=== PATIENT | male | born 2005 | race Caucasian/White ===

== ENCOUNTER 2023-02-04 20:26 | Emergency (ER) | payer OTHER, SELFPAY ==
[2023-02-04 20:36] VITALS: BP 134/65; PULSE 75; RESP 18; O2SAT 95; BMI 25.7
[2023-02-04] MEDS: TET,DIPH,PERTUSS(ACELL),VAC/PF 0.5 ML SYRINGE IM (20:54)
[2023-02-04] MEDS: LIDOCAINE 1% (PF) 5 ML INJ (20:54)
--- NOTE | 2023-02-04 20:55 | ED.WOUNDLAC ---
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 Brought in by his grandfather for further evaluation. He has no other specific complaints he is left-handed, tetanus status is not known and this is an L and I injury Related Data Allergies Allergy/AdvReac Type Severity Reaction Status Date / Time No Known Drug Allergies Allergy Verified 02/04/23 20:40 Review of Systems Review of Systems Narrative: Pertinent positive and negative findings as per HPI Exam Initial Vital Signs Initial Vital Signs: Vital Signs Pulse Rate 75 02/04/23 20:36 Respiratory Rate 18 02/04/23 20:36 Blood Pressure 134/65 02/04/23 20:36 Pulse Oximetry 95 02/04/23 20:36 Oxygen Delivery Method Room Air 02/04/23 20:36 General: Alert appropriate in no acute distress Respiratory: Able to speak in full sentences, no obvious respiratory distress Skin: No obvious rashes, warm and dry Neurologic: Grossly intact no obvious asymmetries or abnormalities Psych: appropriate insight and affect, cooperative Extremity: Left thumb has a 1 cm laceration into the pad of the thumb that does not involve the nail or nail bed but is large enough flap that suture to repair this will certainly expedite healing overall Procedures Laceration Repair L thumb: Time of procedure: 21:08 Site: hand Side (If applicable): left Size (cm): 1 Description: linear, flap and clean Depth: simple, single layer Local Anesthetic: other anesthetic (patient declines any anesthetic) Pre-repair: wound explored and deep structures intact Skin layer closed with: vicryl Skin layer suture size: 4-0 Number of sutures: 1 Technique: simple, interrupted Course Orders Ordered: Discontinued Medications Diphtheria/Tetanus/Acell Pertussis (Tet,Diph,Pertuss(Acell),Vac/Pf 0.5 Ml Syringe) 0.5 ml IM .ONCE ONE Stop: 02/04/23 20:44 Lidocaine HCl (Lidocaine 1% (Pf) 2ml) 2 ml INJ NOW ONE Stop: 02/04/23 20:44 Lidocaine HCl (Lidocaine 1% (Pf) 5 Ml) 5 ml INJ NOW ONE Stop: 02/04/23 20:52 Vital Signs Vital signs: Vital Signs - 8 hr 02/04/23 20:36 Pulse Rate 75 Respiratory Rate 18 Blood Pressure 134/65 Pulse Oximetry 95 Oxygen Delivery Method Room Air MDM - Wound/Laceration MDM Narrative Medical decision making narrative: CC: Laceration tip of the left thumb, acute self-limited Data collected from: patient, Differential considered: Deep wound, nail involvement, bone involvement, vascular involvement Exam documented above, pertinent findings include: 1 cm laceration to the pad of the thumb. Neurovascularly intact bleeding controlled. Nailbed not involved Treatments: Single interrupted suture is placed in the wound is dressed with a Band-Aid Discussion: Patient tolerated procedure well. Recommended sutures out on or about February 11. He does work as a operating room specialist, L and I forms are filled out ([id number]) I did recommend using a rubber glove while he is at work to keep the wound clean and dry. Questions are answered and he is safe for discharge home Discharge Plan Departure Patient Disposition: Home Clinical Impression: Laceration Instructions: DI for Laceration Repair Activity Restrictions/Additional Instructions: Thank you for coming in today Used a single stitch to repair your cut. Keep the area clean and dry and covered with a Band-Aid. If your working, I would recommend a rubber gloves so that it is not soaking in water. The stitches can come out on or about February 11. Using 400 mg of ibuprofen (2 [id number] pills) and 1 Tylenol every 6 hours can be very helpful in controlling pain. If you find that you are getting worse or develop any new symptoms, please feel free to return to the emergency department for further evaluation. Stand Alone Forms: Patient Portal/API
== END 2023-02-04 21:26 | disposition home or self-care (01) ==
PROVIDERS: Emergency Provider Emergency Medicine
DX: S61.012A Laceration without foreign body of left thumb without damage to nail, initial encounter (principal); W26.0XXA Contact with knife, initial encounter; Z23 Encounter for immunization; Y99.0 Civilian activity done for income or pay
CPT/HCPCS: 12001; 90471; 99283; 99284; 90715

== ENCOUNTER 2024-04-06 20:57 | Emergency (ER) | payer OTHER, SELFPAY ==
[2024-04-06 21:07] VITALS: BP 118/60; PULSE 93; RESP 16; TEMP 36.4; O2SAT 98; BMI 25.0
--- NOTE | 2024-04-07 00:07 | ED.WOUNDLAC ---
HPI - Wound/Laceration General Chief Complaint: Wound/Laceration Stated Complaint: finger laceration Time Seen by Provider: 04/07/24 00:03 Source: patient Mode of arrival: Ambulatory History of Present Illness HPI narrative: 18-year-old male was working this evening 7:30 p.m. at [employer], cut his left middle fingertip on a knife, unclear if it was exposed to meet or other contaminant, he washed it out, it would not seem to stop bleeding, therefore was referred here to the emergency department. Stopped bleeding during triage with dressing. Last tetanus shot 2 years ago. NKDA. Related Data Allergies Allergy/AdvReac Type Severity Reaction Status Date / Time No Known Drug Allergies Allergy Verified 04/06/24 21:07 Review of Systems Review of Systems Narrative: see HPI Patient History Social History Smoking Status: Never smoker Smoking Status: Never smoker Substance Use Type: does not use Exam Narrative Exam Narrative: GENERAL: Well-developed patient, in mild distress. HEAD: Atraumatic. Normocephalic. EYES: Pupils equal round and reactive. Extraocular motions intact. No scleral icterus. No injection or drainage. ENT: Nose without bleeding, purulent drainage. Throat without erythema, tonsillar hypertrophy or exudate. Airway patent. NECK: Trachea midline. Non tender CARDIOVASCULAR: Regular rate and rhythm without murmurs, gallops, or rubs. RESPIRATORY: Clear to auscultation. Breath sounds equal bilaterally. No wheezes, rales, or rhonchi. GASTROINTESTINAL: Abdomen soft, non-tender, nondistended. EXTREMITIES: No edema or joint tenderness. Small laceration to left middle finger tip, approximately 4-5 mm length, non gaping, no obvious nail bed injury. BACK: Nontender without deformity or crepitance. No flank tenderness. NEURO: AOx3. SKIN: No rash or erythema of visible areas Initial Vital Signs Initial Vital Signs: Vital Signs Temperature 97.5 F L 04/06/24 21:07 Pulse Rate 93 H 04/06/24 21:07 Respiratory Rate 16 04/06/24 21:07 Blood Pressure 118/60 04/06/24 21:07 Pulse Oximetry 98 04/06/24 21:07 Oxygen Delivery Method Room Air 04/06/24 21:07 Procedures Laceration Repair Laceration 1: Time of procedure: 01:00 Site: hand Side (If applicable): left and right Size (cm): 0.5 Description: linear Depth: simple, single layer Skin layer closed with: steri-strips (single strip applied by nursing) Course Orders Ordered: ED Orders 04/07/24 00:10 XR hand LT min 3V Stat Vital Signs Vital signs: Vital Signs - 8 hr 04/06/24 21:07 04/07/24 00:58 Temperature 97.5 F L Pulse Rate 93 H 79 Respiratory Rate 16 18 Blood Pressure 118/60 121/80 Pulse Oximetry 98 98 Oxygen Delivery Method Room Air Room Air MDM - Wound/Laceration MDM Narrative Medical decision making narrative: 18-year-old male with left middle finger tip injury, laceration at work at restaurant, food contamination, rinsed, would not stop bleeding, here for evaluation. Wound had stopped bleeding with dressing applied at triage. Tetanus up-to-date. X-ray negative for fracture. Small laceration closed with Steri-Strip. Advised wound check in 2-3 days with PCP. Return precautions discussed. L&[place] state paperwork filled out, claim number [id number] Discharge Plan Departure Patient Disposition: Home Clinical Impression: Laceration Instructions: DI for Laceration Repair Activity Restrictions/Additional Instructions: Small laceration to fingertip left ring finger. Could consider x-ray to look for fracture, this was ordered, but declined. Wound did appear fairly small and superficial, closed with single Steri-Strip. Advised use of finger/glove to keep finger dry. Wound check advised in 2 days. [employer] form filled out, claim number [id number]. Referrals: Michael Guerra MD [Primary Care Provider] - Stand Alone Forms: Patient Portal/API
[2024-04-07 00:58] VITALS: BP 121/80; PULSE 79; RESP 18; O2SAT 98
== END 2024-04-07 00:59 | disposition home or self-care (01) ==
PROVIDERS: Emergency Provider Emergency Medicine; PCP Family Medicine Sports Medicine
DX: S61.213A Laceration without foreign body of left middle finger without damage to nail, initial encounter (principal); W26.0XXA Contact with knife, initial encounter
CPT/HCPCS: 99281